=== PATIENT | female | born 1940 | race Caucasian/White ===

== ENCOUNTER 2024-08-16 18:13 | Inpatient (IN) | payer MEDICARE ==
[~2024-08-16] VITALS: Ht 167.6 cm; Wt 72.6 kg
[2024-08-16] MEDS ORDERED: AMLO-212 PO (18:56)
[2024-08-16] MEDS ORDERED: CHOL-35 PO (18:56)
[2024-08-16] MEDS ORDERED: DIME118C3 TP (18:56)
[2024-08-16] MEDS ORDERED: PANT40TA49 PO (18:56)
[2024-08-16] MEDS ORDERED: FURO-152 PO (18:56)
[2024-08-16] MEDS ORDERED: ATOR20TA PO (18:56)
[2024-08-16] MEDS ORDERED: CYAN500T47 PO (18:56)
[2024-08-16] MEDS ORDERED: FERR325T6 PO (18:56)
[2024-08-16] MEDS ORDERED: ACET325T53 PO (18:56)
[2024-08-16 19:06] VITALS: BP 135/47; TEMP 98.3; O2SAT 98
[2024-08-16] MEDS ORDERED: REMEDY ESSENTIAL ZINC PASTE 113 GM TOP PRN (20:30)
[2024-08-16] MEDS: OXYCODONE HCL 5 MG TABLET PO PRN (20:44)
[2024-08-17 05:00] VITALS: BP 151/62; TEMP 98.3; O2SAT 96
[2024-08-17] MEDS ORDERED: CHOLECALCIFEROL 1,000 UNIT TABLET PO SCH (05:45)
[2024-08-17] MEDS: PANTOPRAZOLE SODIUM 40 MG TABLET.DR PO SCH (06:41)
[2024-08-17 07:29] LABS: BASOPHILS % (AUTO) 0.6 % (0.0-2.0); EOSINOPHILS # (AUTO) 0.3 K/uL (0.0-0.7); EOSINOPHILS % (AUTO) 4.7 % (0.0-7.0); HEMATOCRIT 26.8 % (31.2-41.9); HEMOGLOBIN 9.3 g/dL (10.9-14.3); LYMPHOCYTES # (AUTO) 0.4 K/uL (0.8-4.8); LYMPHOCYTES % (AUTO) 6.6 % (20.5-51.5); MEAN CORPUSCULAR HEMOGLOBIN 33.5 uug (24.7-32.8); MEAN CORPUSCULAR HGB CONC 35 g/dL (32.3-35.6); MEAN CORPUSCULAR VOLUME 96.6 fL (75.5-95.3); MONOCYTES # (AUTO) 0.7 K/uL (0.1-1.30); MONOCYTES % (AUTO) 10.4 % (0.0-11.0); NEUTROPHILS % (AUTO) 77.7 % (38.5-71.5); PLATELET COUNT (AUTO) 163 K/uL (179-408); RED BLOOD CELL COUNT(AUTO) 2.77 MIL/uL (3.63-4.92); RED CELL DISTRIBUTION WIDTH 20.4 % (12.3-17.7); WHITE BLOOD COUNT (AUTO) 6.4 K/uL (3.8-11.8)
[2024-08-17 07:38] LABS: CALCIUM 8.5 mg/dL (8.5-10.1); CARBON DIOXIDE 31 mmol/L (21-32); CHLORIDE 102 mmol/L (98-107); CREATININE 1.2 mg/dL (0.6-1.3); GLUCOSE 104 mg/dL (74-106); POTASSIUM 3.6 mmol/L (3.5-5.1); SODIUM SERUM 140 mmol/L (136-145); UREA NITROGEN, BLOOD 11 mg/dL (7-18)
[2024-08-17 07:46] LABS: DIFFERENTIAL COMMENT 1
[2024-08-17] MEDS ORDERED: CAPE500T15 PO (08:47)
[2024-08-17] MEDS: AMLODIPINE 5 MG TABLET PO SCH (10:00)
[2024-08-17] MEDS: FERROUS SULFATE 325 MG TABEC PO SCH (10:01)
[2024-08-17] MEDS: FUROSEMIDE 20 MG TABLET PO SCH (10:01)
[2024-08-17] MEDS: CYANOCOBALAMIN 1,000 MCG TABLET PO SCH (10:01)
[2024-08-17] MEDS: MEDIHONEY= THERAHONEY 1.5 OZ TUBE TOP SCH (13:38)
[2024-08-17] MEDS: KETOROLAC TROMETHAMINE 30 MG INJ IM ONE (14:06)
[2024-08-17 16:00] VITALS: BP 116/42; TEMP 98.5; O2SAT 97
[2024-08-17] MEDS: ATORVASTATIN 20 MG TABLET PO SCH (21:00)
[2024-08-17 21:15] VITALS: BP_SYST 108; BP_SYST 78; BP_DIAS 36; BP_DIAS 45; TEMP 98; O2SAT 100
[2024-08-18 06:41] VITALS: BP 124/47; TEMP 97.9; O2SAT 96
[2024-08-18] MEDS: KETOROLAC TROMETHAMINE 30 MG INJ IM ONE (16:19)
[2024-08-18 19:58] VITALS: BP 115/46; TEMP 98.4; O2SAT 96
[2024-08-18] MEDS: MORPHINE SULFATE SR 15 MG TABLET.SA PO SCH (21:12)
[2024-08-19 06:18] VITALS: BP 134/58; TEMP 98.3; O2SAT 94
[2024-08-19 09:09] LABS: BASOPHILS % (AUTO) 0.7 % (0.0-2.0); EOSINOPHILS # (AUTO) 0.5 K/uL (0.0-0.7); EOSINOPHILS % (AUTO) 9.1 % (0.0-7.0); HEMATOCRIT 24.9 % (31.2-41.9); HEMOGLOBIN 8.6 g/dL (10.9-14.3); LYMPHOCYTES # (AUTO) 0.4 K/uL (0.8-4.8); LYMPHOCYTES % (AUTO) 7.7 % (20.5-51.5); MEAN CORPUSCULAR HEMOGLOBIN 33.3 uug (24.7-32.8); MEAN CORPUSCULAR HGB CONC 35 g/dL (32.3-35.6); MEAN CORPUSCULAR VOLUME 96.2 fL (75.5-95.3); MONOCYTES # (AUTO) 0.6 K/uL (0.1-1.30); MONOCYTES % (AUTO) 11.2 % (0.0-11.0); NEUTROPHILS # (AUTO) 3.8 K/uL (1.8-8.9); NEUTROPHILS % (AUTO) 71.3 % (38.5-71.5); PLATELET COUNT (AUTO) 195 K/uL (179-408); RED BLOOD CELL COUNT(AUTO) 2.59 MIL/uL (3.63-4.92); RED CELL DISTRIBUTION WIDTH 20.8 % (12.3-17.7); WHITE BLOOD COUNT (AUTO) 5.4 K/uL (3.8-11.8)
[2024-08-19 09:14] LABS: DIFFERENTIAL COMMENT 1
[2024-08-19 09:16] LABS: THYROID STIMULATING HORMONE 3.278 mIU/mL (0.358-3.740)
[2024-08-19 10:00] VITALS: BP 152/53; O2SAT 97
[2024-08-19] MEDS: MUPIROCIN 2% OINT 22 GM TUBE NS SCH (14:40)
[2024-08-19 15:53] VITALS: BP 126/53; TEMP 98.4; O2SAT 98
[2024-08-19] MEDS: LIDOCAINE 5% PATCH TD SCH (17:32)
[2024-08-19] MEDS: PROTEIN SUPPLEMENT (PROSTAT) 30 ML LIQUID PO SCH (17:32)
[2024-08-20 00:21] VITALS: BP 112/51; TEMP 97.8; O2SAT 94
[2024-08-20 04:06] LABS: FOLATE (FOLIC ACID), SERUM 8.3 ng/mL (>3.0)
[2024-08-20 06:45] VITALS: BP 130/48; TEMP 98.3; O2SAT 96
[2024-08-20 07:10] LABS: *IMMUNOGLOBULIN G, SERUM 577 mg/dL (586-1602); CARCINOEMBRYONIC AG (CEA) 5.3 ng/mL (0.0-4.7); IMMUNOGLOBULIN A, SERUM 106 mg/dL (64-422); IMMUNOGLOBULIN M, SERUM 76 mg/dL (26-217)
[2024-08-20 07:49] VITALS: BP 136/50; TEMP 98.4; O2SAT 94
[2024-08-20] MEDS ORDERED: CHOLECALCIFEROL 1,000 UNIT TABLET PO SCH (09:00)
[2024-08-20 10:10] LABS: FREE KAPPA LT CHAINS SERUM 37.8 mg/L (3.3-19.4); FREE LAMBDA LT CHAIN SERUM 41.7 mg/L (5.7-26.3); KAPPA/LAMBDA RATIO SERUM 0.91 (0.26-1.65)
[2024-08-20 16:10] VITALS: BP 132/57; TEMP 98.7; O2SAT 95
[2024-08-20 20:00] VITALS: BP 98/39; TEMP 97.4; O2SAT 94
[2024-08-20] MEDS: POLYVINYL ALCOHOL OPHT DROPS 15 ML BOTTLE EACHEYE PRN (21:35)
[2024-08-21 00:11] LABS: *OCCULT BLOOD STOOL NEGATIVE (NEGATIVE)
[2024-08-21 06:04] VITALS: BP 144/60; TEMP 98.6; O2SAT 93
[2024-08-21 08:13] VITALS: BP 140/50; TEMP 98; O2SAT 95
[2024-08-21 11:47] LABS: BASOPHILS % (AUTO) 0.7 % (0.0-2.0); EOSINOPHILS # (AUTO) 0.7 K/uL (0.0-0.7); HEMATOCRIT 24.4 % (31.2-41.9); HEMOGLOBIN 8.3 g/dL (10.9-14.3); LYMPHOCYTES # (AUTO) 0.4 K/uL (0.8-4.8); LYMPHOCYTES % (AUTO) 6.9 % (20.5-51.5); MEAN CORPUSCULAR HEMOGLOBIN 32.7 uug (24.7-32.8); MEAN CORPUSCULAR HGB CONC 34 g/dL (32.3-35.6); MEAN CORPUSCULAR VOLUME 96.4 fL (75.5-95.3); MONOCYTES # (AUTO) 0.6 K/uL (0.1-1.30); MONOCYTES % (AUTO) 11.1 % (0.0-11.0); NEUTROPHILS # (AUTO) 3.9 K/uL (1.8-8.9); NEUTROPHILS % (AUTO) 69.3 % (38.5-71.5); PLATELET COUNT (AUTO) 253 K/uL (179-408); RED BLOOD CELL COUNT(AUTO) 2.53 MIL/uL (3.63-4.92); RED CELL DISTRIBUTION WIDTH 20.5 % (12.3-17.7); WHITE BLOOD COUNT (AUTO) 5.6 K/uL (3.8-11.8)
[2024-08-21 12:05] LABS: DIFFERENTIAL COMMENT 1
[2024-08-21 16:05] VITALS: BP 109/45; TEMP 98; O2SAT 96
[2024-08-21] MEDS: METHYL SALICYLATE/MENTHOL CREAM 28 GM TUBE TOP PRN (16:28)
[2024-08-21 20:13] VITALS: BP 117/45; TEMP 97.9; O2SAT 95
[2024-08-22 05:59] VITALS: BP 121/43; TEMP 97.8; O2SAT 94
[2024-08-22 08:14] VITALS: BP 122/47; TEMP 98.4; O2SAT 95
[2024-08-22] MEDS: ENSURE WITH FIBER 237 ML LIQUID (CHOCOLATE) PO SCH (09:57)
[2024-08-22 16:06] VITALS: BP 124/51; TEMP 98.4; O2SAT 96
[2024-08-22 20:24] VITALS: BP 122/45; TEMP 96.7; O2SAT 99
[2024-08-23 06:45] VITALS: BP 125/53; TEMP 98.6; O2SAT 94
[2024-08-23 07:09] LABS: A/G RATIO 0.7 (0.7-1.7); ALBUMIN 1.7 g/dL (2.9-4.4); ALPHA-1-GLOBULIN 0.4 g/dL (0.0-0.4); ALPHA-2-GLOBULIN 0.9 g/dL (0.4-1.0); BETA GLOBULIN 0.8 g/dL (0.7-1.3); GAMMA GLOBULIN 0.5 g/dL (0.4-1.8); GLOBULIN, TOTAL 2.6 g/dL (2.2-3.9); M-SPIKE Not Observed g/dL (Not Observed); PROTEIN, TOTAL 4.3 g/dL (6.0-8.5)
[2024-08-23 08:00] VITALS: BP 127/52; TEMP 97; O2SAT 97
[2024-08-23 08:57] LABS: BASOPHILS % (AUTO) 0.7 % (0.0-2.0); EOSINOPHILS # (AUTO) 0.7 K/uL (0.0-0.7); EOSINOPHILS % (AUTO) 12.3 % (0.0-7.0); HEMATOCRIT 27.5 % (31.2-41.9); HEMOGLOBIN 9.3 g/dL (10.9-14.3); LYMPHOCYTES # (AUTO) 0.3 K/uL (0.8-4.8); MEAN CORPUSCULAR HEMOGLOBIN 32.6 uug (24.7-32.8); MEAN CORPUSCULAR HGB CONC 34 g/dL (32.3-35.6); MEAN CORPUSCULAR VOLUME 96.4 fL (75.5-95.3); MONOCYTES # (AUTO) 0.6 K/uL (0.1-1.30); MONOCYTES % (AUTO) 10.3 % (0.0-11.0); NEUTROPHILS # (AUTO) 3.9 K/uL (1.8-8.9); NEUTROPHILS % (AUTO) 70.7 % (38.5-71.5); PLATELET COUNT (AUTO) 247 K/uL (179-408); RED BLOOD CELL COUNT(AUTO) 2.86 MIL/uL (3.63-4.92); RED CELL DISTRIBUTION WIDTH 20.5 % (12.3-17.7); WHITE BLOOD COUNT (AUTO) 5.5 K/uL (3.8-11.8)
[2024-08-23 09:06] LABS: DIFFERENTIAL COMMENT 1
[2024-08-23 09:23] LABS: CALCIUM 8.7 mg/dL (8.5-10.1); CARBON DIOXIDE 30 mmol/L (21-32); CHLORIDE 102 mmol/L (98-107); CREATININE 1.3 mg/dL (0.6-1.3); GLUCOSE 110 mg/dL (74-106); POTASSIUM 3.8 mmol/L (3.5-5.1); SODIUM SERUM 140 mmol/L (136-145); UREA NITROGEN, BLOOD 15 mg/dL (7-18)
[2024-08-23] MEDS ORDERED: LIDOCAINE HCL 1% 20 ML VIAL IJ PRN (13:00)
[2024-08-23] MEDS: TRIAMCINOLONE ACETONIDE 40 MG/1 ML VIAL IM ONE (13:21)
[2024-08-23 16:00] VITALS: BP 135/50; TEMP 98.3; O2SAT 96
[2024-08-23 20:30] VITALS: BP 149/60; TEMP 97.3; O2SAT 93
[2024-08-24 06:46] VITALS: BP 145/59; TEMP 98.2; O2SAT 93
[2024-08-24 07:51] LABS: BASOPHILS % (AUTO) 0.3 % (0.0-2.0); HEMATOCRIT 24.8 % (31.2-41.9); HEMOGLOBIN 8.5 g/dL (10.9-14.3); LYMPHOCYTES # (AUTO) 0.2 K/uL (0.8-4.8); LYMPHOCYTES % (AUTO) 4.1 % (20.5-51.5); MEAN CORPUSCULAR HEMOGLOBIN 32.7 uug (24.7-32.8); MEAN CORPUSCULAR HGB CONC 34 g/dL (32.3-35.6); MEAN CORPUSCULAR VOLUME 95.5 fL (75.5-95.3); MONOCYTES # (AUTO) 0.2 K/uL (0.1-1.30); MONOCYTES % (AUTO) 5.1 % (0.0-11.0); NEUTROPHILS # (AUTO) 4.3 K/uL (1.8-8.9); NEUTROPHILS % (AUTO) 90.5 % (38.5-71.5); PLATELET COUNT (AUTO) 228 K/uL (179-408); RED CELL DISTRIBUTION WIDTH 20.4 % (12.3-17.7); WHITE BLOOD COUNT (AUTO) 4.8 K/uL (3.8-11.8)
[2024-08-24 08:00] VITALS: BP 144/58; TEMP 97.8; O2SAT 98
[2024-08-24 08:20] LABS: DIFFERENTIAL COMMENT 1
[2024-08-24 08:42] LABS: CALCIUM 8.9 mg/dL (8.5-10.1); CARBON DIOXIDE 29 mmol/L (21-32); CHLORIDE 101 mmol/L (98-107); CREATININE 1.3 mg/dL (0.6-1.3); GLUCOSE 169 mg/dL (74-106); POTASSIUM 4.6 mmol/L (3.5-5.1); SODIUM SERUM 136 mmol/L (136-145); UREA NITROGEN, BLOOD 23 mg/dL (7-18)
[2024-08-24 09:22] VITALS: TEMP 97.8
[2024-08-24 15:29] VITALS: BP 116/46; TEMP 97.8; O2SAT 98
[2024-08-24 20:00] VITALS: TEMP 98.6
[2024-08-25 06:35] VITALS: TEMP 97.8
[2024-08-25 08:10] VITALS: BP 136/57; TEMP 97.6; O2SAT 96
[2024-08-25 08:37] LABS: BASOPHILS % (AUTO) 0.1 % (0.0-2.0); HEMATOCRIT 24.6 % (31.2-41.9); HEMOGLOBIN 8.3 g/dL (10.9-14.3); LYMPHOCYTES # (AUTO) 0.2 K/uL (0.8-4.8); LYMPHOCYTES % (AUTO) 3.9 % (20.5-51.5); MEAN CORPUSCULAR HEMOGLOBIN 32.1 uug (24.7-32.8); MEAN CORPUSCULAR HGB CONC 34 g/dL (32.3-35.6); MEAN CORPUSCULAR VOLUME 94.7 fL (75.5-95.3); MONOCYTES # (AUTO) 0.5 K/uL (0.1-1.30); MONOCYTES % (AUTO) 7.6 % (0.0-11.0); NEUTROPHILS # (AUTO) 5.2 K/uL (1.8-8.9); NEUTROPHILS % (AUTO) 88.4 % (38.5-71.5); PLATELET COUNT (AUTO) 236 K/uL (179-408); WHITE BLOOD COUNT (AUTO) 5.9 K/uL (3.8-11.8)
[2024-08-25 08:54] LABS: DIFFERENTIAL COMMENT 1
[2024-08-25 09:26] LABS: CALCIUM 8.8 mg/dL (8.5-10.1); CARBON DIOXIDE 28 mmol/L (21-32); CHLORIDE 100 mmol/L (98-107); CREATININE 1.3 mg/dL (0.6-1.3); GLUCOSE 148 mg/dL (74-106); POTASSIUM 4.4 mmol/L (3.5-5.1); SODIUM SERUM 134 mmol/L (136-145); UREA NITROGEN, BLOOD 30 mg/dL (7-18)
[2024-08-25 16:20] VITALS: BP 123/68; TEMP 97.7; O2SAT 96
[2024-08-25 21:29] VITALS: BP 131/50; TEMP 97.8; O2SAT 97
[2024-08-26 06:48] VITALS: BP 136/60; TEMP 98.2; O2SAT 95
[2024-08-26 07:00] VITALS: TEMP 97.8
[2024-08-26 08:38] VITALS: BP 140/52; TEMP 97.8; O2SAT 95
[2024-08-26 10:24] LABS: CALCIUM 8.7 mg/dL (8.5-10.1); CARBON DIOXIDE 30 mmol/L (21-32); CHLORIDE 104 mmol/L (98-107); CREATININE 1.4 mg/dL (0.6-1.3); GLUCOSE 123 mg/dL (74-106); POTASSIUM 4.7 mmol/L (3.5-5.1); SODIUM SERUM 140 mmol/L (136-145); UREA NITROGEN, BLOOD 38 mg/dL (7-18)
[2024-08-26 16:11] VITALS: BP 125/47; TEMP 97.8; O2SAT 97
[2024-08-26 22:00] VITALS: BP 104/44; TEMP 97.8; O2SAT 95
[2024-08-27 06:37] VITALS: BP 100/55; TEMP 97.6; O2SAT 95
[2024-08-27 16:27] LABS: BASOPHILS % (AUTO) 0.1 % (0.0-2.0); EOSINOPHILS # (AUTO) 0.1 K/uL (0.0-0.7); EOSINOPHILS % (AUTO) 1.2 % (0.0-7.0); HEMATOCRIT 25.4 % (31.2-41.9); HEMOGLOBIN 8.5 g/dL (10.9-14.3); LYMPHOCYTES # (AUTO) 0.3 K/uL (0.8-4.8); LYMPHOCYTES % (AUTO) 5.1 % (20.5-51.5); MEAN CORPUSCULAR HEMOGLOBIN 31.8 uug (24.7-32.8); MEAN CORPUSCULAR HGB CONC 34 g/dL (32.3-35.6); MEAN CORPUSCULAR VOLUME 94.9 fL (75.5-95.3); MONOCYTES # (AUTO) 0.8 K/uL (0.1-1.30); NEUTROPHILS # (AUTO) 5.5 K/uL (1.8-8.9); NEUTROPHILS % (AUTO) 81.6 % (38.5-71.5); PLATELET COUNT (AUTO) 200 K/uL (179-408); RED BLOOD CELL COUNT(AUTO) 2.68 MIL/uL (3.63-4.92); RED CELL DISTRIBUTION WIDTH 20.4 % (12.3-17.7); WHITE BLOOD COUNT (AUTO) 6.7 K/uL (3.8-11.8)
[2024-08-27 16:34] LABS: DIFFERENTIAL COMMENT 1
[2024-08-27 20:49] VITALS: BP 137/56; TEMP 97.9; O2SAT 96
[2024-08-28 05:00] VITALS: BP 159/50; TEMP 98; O2SAT 96
[2024-08-28 07:29] LABS: BASOPHILS % (AUTO) 0.2 % (0.0-2.0); EOSINOPHILS # (AUTO) 0.1 K/uL (0.0-0.7); HEMATOCRIT 22.2 % (31.2-41.9); HEMOGLOBIN 7.8 g/dL (10.9-14.3); LYMPHOCYTES # (AUTO) 0.3 K/uL (0.8-4.8); LYMPHOCYTES % (AUTO) 4.9 % (20.5-51.5); MEAN CORPUSCULAR HEMOGLOBIN 33.2 uug (24.7-32.8); MEAN CORPUSCULAR HGB CONC 35 g/dL (32.3-35.6); MEAN CORPUSCULAR VOLUME 94.6 fL (75.5-95.3); MONOCYTES # (AUTO) 0.6 K/uL (0.1-1.30); NEUTROPHILS # (AUTO) 4.4 K/uL (1.8-8.9); NEUTROPHILS % (AUTO) 81.9 % (38.5-71.5); PLATELET COUNT (AUTO) 149 K/uL (179-408); RED CELL DISTRIBUTION WIDTH 20.1 % (12.3-17.7); WHITE BLOOD COUNT (AUTO) 5.4 K/uL (3.8-11.8)
[2024-08-28 08:00] VITALS: BP 141/53; TEMP 98.4; O2SAT 95
[2024-08-28 08:05] LABS: DIFFERENTIAL COMMENT 1; RED BLOOD CELL COUNT(AUTO) 2.35 MIL/uL (3.63-4.92)
[2024-08-28 16:24] VITALS: BP 128/44; TEMP 101.8; O2SAT 94
[2024-08-28] MEDS ORDERED: ACETAMINOPHEN 500 MG TABLET PO PRN (20:00)
[2024-08-28 20:36] VITALS: BP 104/38; TEMP 98.8; O2SAT 96
[2024-08-29 06:44] VITALS: BP 119/71; TEMP 97.6; O2SAT 96
[2024-08-29 08:02] LABS: BASOPHILS % (AUTO) 0.2 % (0.0-2.0); EOSINOPHILS # (AUTO) 0.1 K/uL (0.0-0.7); EOSINOPHILS % (AUTO) 0.7 % (0.0-7.0); HEMATOCRIT 23.5 % (31.2-41.9); LYMPHOCYTES # (AUTO) 0.6 K/uL (0.8-4.8); LYMPHOCYTES % (AUTO) 4.4 % (20.5-51.5); MEAN CORPUSCULAR HEMOGLOBIN 32.7 uug (24.7-32.8); MEAN CORPUSCULAR HGB CONC 34 g/dL (32.3-35.6); MEAN CORPUSCULAR VOLUME 95.7 fL (75.5-95.3); MONOCYTES % (AUTO) 8.2 % (0.0-11.0); NEUTROPHILS # (AUTO) 10.9 K/uL (1.8-8.9); NEUTROPHILS % (AUTO) 86.5 % (38.5-71.5); PLATELET COUNT (AUTO) 144 K/uL (179-408); RED CELL DISTRIBUTION WIDTH 20.4 % (12.3-17.7); WHITE BLOOD COUNT (AUTO) 12.6 K/uL (3.8-11.8)
[2024-08-29 08:12] VITALS: BP 112/74; TEMP 97.6; O2SAT 95
[2024-08-29 08:17] LABS: DIFFERENTIAL COMMENT 1; RED BLOOD CELL COUNT(AUTO) 2.45 MIL/uL (3.63-4.92)
[2024-08-29 08:23] LABS: ALANINE AMINOTRANSFERASE 23 U/L (14-59); ALBUMIN 1.6 g/dL (3.4-5.0); ALKALINE PHOSPHATASE 128 U/L (50-136); ASPARTATE AMINOTRANSFERASE 25 U/L (15-37); BILIRUBIN,TOTAL 0.4 mg/dL (0.2-1.0); CALCIUM 7.9 mg/dL (8.5-10.1); CARBON DIOXIDE 30 mmol/L (21-32); CHLORIDE 104 mmol/L (98-107); CREATININE 1.4 mg/dL (0.6-1.3); GLUCOSE 118 mg/dL (74-106); LIPASE 11 U/L (16-77); MAGNESIUM 1.8 mg/dL (1.8-2.4); PHOSPHOROUS 2.7 mg/dL (2.5-4.9); POTASSIUM 4.4 mmol/L (3.5-5.1); SODIUM SERUM 140 mmol/L (136-145); TOTAL PROTEIN, SERUM 4.8 g/dL (6.4-8.2); UREA NITROGEN, BLOOD 37 mg/dL (7-18)
[2024-08-29 11:15] LABS: *BILIRUBIN,URIN NEGATIVE (NEGATIVE); *BLOOD, URINE 1+ (NEGATIVE); *CLARITY,URINE CLEAR (CLEAR); *COLOR,URINE YELLOW (YELLOW); *KETONES,URINE NEGATIVE (NEGATIVE); *PROTEIN,URINE 1+ (NEGATIVE); *UROBILINOGEN,URINE 0.2 E.U./dl (NORMAL); LEUKOCYTE ESTERASE ,URINE 3+ (NEGATIVE); NITRITE, URINE NEGATIVE (NEGATIVE); UGLUCOSE NEGATIVE (NEGATIVE)
[2024-08-29 12:00] LABS: BACTERIA,URINE MANY /HPF (NONE SEEN); SQUAMOUS EPITHELIAL CELL,UR FEW /HPF (NONE SEEN); WBC,URINE 50-80 /HPF (0-3)
[2024-08-29] MEDS: ASCORBIC ACID 500 MG TABLET PO SCH (14:42)
[2024-08-29] MEDS: ZINC SULFATE 220 MG CAPSULE PO SCH (14:42)
[2024-08-29] MEDS: DOXYCYCLINE HYCLATE 100 MG TABLET PO SCH (14:42)
[2024-08-29 16:12] VITALS: BP 116/83; TEMP 97.9; O2SAT 97
[2024-08-29 20:00] VITALS: BP 117/65; TEMP 98.3; O2SAT 98
[2024-08-30 06:49] VITALS: BP 135/51; TEMP 97.4; O2SAT 96
[2024-08-30 09:53] VITALS: BP 127/49; TEMP 97.4; O2SAT 96
[2024-08-30 20:54] VITALS: BP 121/49; TEMP 98.1; O2SAT 98
[2024-08-31 06:48] VITALS: BP 122/43; TEMP 98.2
[2024-08-31 07:34] LABS: BASOPHILS % (AUTO) 0.4 % (0.0-2.0); EOSINOPHILS # (AUTO) 0.1 K/uL (0.0-0.7); EOSINOPHILS % (AUTO) 1.6 % (0.0-7.0); HEMATOCRIT 22.3 % (31.2-41.9); HEMOGLOBIN 7.8 g/dL (10.9-14.3); LYMPHOCYTES # (AUTO) 0.4 K/uL (0.8-4.8); MEAN CORPUSCULAR HEMOGLOBIN 33.1 uug (24.7-32.8); MEAN CORPUSCULAR HGB CONC 35 g/dL (32.3-35.6); MEAN CORPUSCULAR VOLUME 94.5 fL (75.5-95.3); MONOCYTES # (AUTO) 0.6 K/uL (0.1-1.30); MONOCYTES % (AUTO) 8.9 % (0.0-11.0); NEUTROPHILS % (AUTO) 84.1 % (38.5-71.5); PLATELET COUNT (AUTO) 132 K/uL (179-408); RED CELL DISTRIBUTION WIDTH 20.2 % (12.3-17.7); WHITE BLOOD COUNT (AUTO) 7.1 K/uL (3.8-11.8)
[2024-08-31 07:58] LABS: CALCIUM 8.2 mg/dL (8.5-10.1); CARBON DIOXIDE 30 mmol/L (21-32); CHLORIDE 105 mmol/L (98-107); CREATININE 1.4 mg/dL (0.6-1.3); GLUCOSE 116 mg/dL (74-106); MAGNESIUM 1.8 mg/dL (1.8-2.4); POTASSIUM 4.6 mmol/L (3.5-5.1); SODIUM SERUM 139 mmol/L (136-145); UREA NITROGEN, BLOOD 34 mg/dL (7-18)
[2024-08-31 08:02] LABS: DIFFERENTIAL COMMENT 1; RED BLOOD CELL COUNT(AUTO) 2.37 MIL/uL (3.63-4.92)
[2024-09-01 07:22] VITALS: BP 144/53; TEMP 97.9; O2SAT 98
[2024-09-01 07:59] VITALS: BP 121/60; TEMP 97.6; O2SAT 97
[2024-09-01 16:00] VITALS: BP 122/54; TEMP 98.2; O2SAT 97
[2024-09-01] MEDS: DOCUSATE SODIUM 100 MG CAPSULE PO SCH (17:06)
[2024-09-01 22:32] VITALS: BP 144/51; TEMP 98; O2SAT 96
[2024-09-02 05:00] VITALS: BP 148/59; TEMP 98.2; O2SAT 97
[2024-09-02] MEDS: NITROFURANTOIN/NITROFURAN MAC 100 MG CAPSULE PO SCH (21:39)
[2024-09-02 21:56] VITALS: BP 127/51; TEMP 97.8; O2SAT 95
[2024-09-03 07:43] VITALS: BP 140/42; TEMP 98; O2SAT 95
[2024-09-03 07:56] LABS: BASOPHILS % (AUTO) 0.3 % (0.0-2.0); EOSINOPHILS # (AUTO) 0.2 K/uL (0.0-0.7); EOSINOPHILS % (AUTO) 2.4 % (0.0-7.0); HEMATOCRIT 24.6 % (31.2-41.9); HEMOGLOBIN 8.2 g/dL (10.9-14.3); LYMPHOCYTES # (AUTO) 0.3 K/uL (0.8-4.8); LYMPHOCYTES % (AUTO) 3.6 % (20.5-51.5); MEAN CORPUSCULAR HEMOGLOBIN 31.8 uug (24.7-32.8); MEAN CORPUSCULAR HGB CONC 33 g/dL (32.3-35.6); MEAN CORPUSCULAR VOLUME 95.8 fL (75.5-95.3); MONOCYTES # (AUTO) 0.4 K/uL (0.1-1.30); MONOCYTES % (AUTO) 4.6 % (0.0-11.0); NEUTROPHILS # (AUTO) 7.8 K/uL (1.8-8.9); NEUTROPHILS % (AUTO) 89.1 % (38.5-71.5); PLATELET COUNT (AUTO) 148 K/uL (179-408); RED BLOOD CELL COUNT(AUTO) 2.57 MIL/uL (3.63-4.92); WHITE BLOOD COUNT (AUTO) 8.7 K/uL (3.8-11.8)
[2024-09-03 08:04] LABS: DIFFERENTIAL COMMENT 1
[2024-09-03 08:10] VITALS: BP 144/58; TEMP 98; O2SAT 95
[2024-09-03] MEDS: ONDANSETRON HCL 4 MG TABLET PO PRN (12:26)
[2024-09-03 19:30] VITALS: BP 123/54; TEMP 97.9; O2SAT 96
[2024-09-04 06:00] VITALS: BP 120/60; TEMP 97.8; O2SAT 96
[2024-09-04 09:10] LABS: BASOPHILS % (AUTO) 0.2 % (0.0-2.0); EOSINOPHILS # (AUTO) 0.3 K/uL (0.0-0.7); EOSINOPHILS % (AUTO) 3.3 % (0.0-7.0); HEMOGLOBIN 8.6 g/dL (10.9-14.3); LYMPHOCYTES # (AUTO) 0.3 K/uL (0.8-4.8); LYMPHOCYTES % (AUTO) 3.9 % (20.5-51.5); MEAN CORPUSCULAR HGB CONC 33 g/dL (32.3-35.6); MEAN CORPUSCULAR VOLUME 96.7 fL (75.5-95.3); MONOCYTES # (AUTO) 0.4 K/uL (0.1-1.30); MONOCYTES % (AUTO) 5.1 % (0.0-11.0); NEUTROPHILS # (AUTO) 6.7 K/uL (1.8-8.9); NEUTROPHILS % (AUTO) 87.5 % (38.5-71.5); PLATELET COUNT (AUTO) 149 K/uL (179-408); RED BLOOD CELL COUNT(AUTO) 2.69 MIL/uL (3.63-4.92); RED CELL DISTRIBUTION WIDTH 20.9 % (12.3-17.7); WHITE BLOOD COUNT (AUTO) 7.7 K/uL (3.8-11.8)
[2024-09-04 09:20] LABS: CALCIUM 8.9 mg/dL (8.5-10.1); CARBON DIOXIDE 29 mmol/L (21-32); CHLORIDE 106 mmol/L (98-107); CREATININE 1.2 mg/dL (0.6-1.3); GLUCOSE 145 mg/dL (74-106); PHOSPHOROUS 3.3 mg/dL (2.5-4.9); POTASSIUM 4.5 mmol/L (3.5-5.1); SODIUM SERUM 141 mmol/L (136-145); UREA NITROGEN, BLOOD 25 mg/dL (7-18)
[2024-09-04 09:27] LABS: DIFFERENTIAL COMMENT 1
[2024-09-04 10:02] VITALS: BP 134/50; TEMP 97.9; O2SAT 98
[2024-09-04 16:16] VITALS: BP 121/52; TEMP 97.8; O2SAT 98
[2024-09-04 22:48] VITALS: BP 114/49; TEMP 98; O2SAT 98
[2024-09-05 07:00] VITALS: BP 156/55; TEMP 98.2; O2SAT 96
[2024-09-05 15:54] VITALS: BP 144/45; TEMP 98.2; O2SAT 97
[2024-09-05 21:11] VITALS: BP 110/55; TEMP 97.9; O2SAT 95
[2024-09-06 07:36] VITALS: BP 114/90; TEMP 97.9; O2SAT 97
[2024-09-06 19:39] VITALS: BP 118/48; TEMP 90; O2SAT 94
[2024-09-06 19:54] VITALS: BP 117/43; TEMP 98.1; O2SAT 97
[2024-09-06 20:17] VITALS: BP 126/47
[2024-09-07 05:00] VITALS: BP 131/49; TEMP 98.2; O2SAT 94
[2024-09-07 16:12] VITALS: BP 143/48; TEMP 97.3; O2SAT 100
[2024-09-08 07:55] VITALS: BP 144/51; TEMP 97.9; O2SAT 95
[2024-09-08 08:20] VITALS: BP 156/67; TEMP 98.5; O2SAT 96
[2024-09-08] MEDS ORDERED: ALBUTEROL SULFATE 2.5 MG/3 ML NEBU NEB PRN (16:45)
[2024-09-08 22:42] VITALS: BP 115/57; TEMP 98; O2SAT 93
[2024-09-09 06:53] VITALS: BP 97/39; TEMP 99; O2SAT 90
[2024-09-09 08:00] VITALS: BP 115/57; TEMP 98; O2SAT 93
[2024-09-09 08:13] LABS: BASOPHILS # (AUTO) 0.1 K/UL (0.0-0.2); BASOPHILS % (AUTO) 0.4 % (0.0-2.0); EOSINOPHILS % (AUTO) 0.2 % (0.0-7.0); HEMATOCRIT 24.8 % (31.2-41.9); HEMOGLOBIN 8.2 g/dL (10.9-14.3); LYMPHOCYTES # (AUTO) 0.4 K/uL (0.8-4.8); LYMPHOCYTES % (AUTO) 3.8 % (20.5-51.5); MEAN CORPUSCULAR HEMOGLOBIN 31.8 uug (24.7-32.8); MEAN CORPUSCULAR HGB CONC 33 g/dL (32.3-35.6); MEAN CORPUSCULAR VOLUME 95.8 fL (75.5-95.3); MONOCYTES # (AUTO) 0.9 K/uL (0.1-1.30); MONOCYTES % (AUTO) 8.1 % (0.0-11.0); NEUTROPHILS # (AUTO) 10.2 K/uL (1.8-8.9); NEUTROPHILS % (AUTO) 87.5 % (38.5-71.5); PLATELET COUNT (AUTO) 175 K/uL (179-408); RED BLOOD CELL COUNT(AUTO) 2.59 MIL/uL (3.63-4.92); WHITE BLOOD COUNT (AUTO) 11.6 K/uL (3.8-11.8)
[2024-09-09 08:27] LABS: DIFFERENTIAL COMMENT 1
[2024-09-09 08:52] LABS: ALANINE AMINOTRANSFERASE 19 U/L (14-59); ALBUMIN 1.6 g/dL (3.4-5.0); ALKALINE PHOSPHATASE 104 U/L (50-136); ASPARTATE AMINOTRANSFERASE 13 U/L (15-37); BILIRUBIN,TOTAL 0.9 mg/dL (0.2-1.0); CALCIUM 8.6 mg/dL (8.5-10.1); CARBON DIOXIDE 28 mmol/L (21-32); CHLORIDE 105 mmol/L (98-107); CREATININE 1.4 mg/dL (0.6-1.3); GLUCOSE 124 mg/dL (74-106); NT-PRO BNP 11736 pg/mL (0-125); PHOSPHOROUS 3.8 mg/dL (2.5-4.9); SODIUM SERUM 138 mmol/L (136-145); TOTAL PROTEIN, SERUM 5.3 g/dL (6.4-8.2); UREA NITROGEN, BLOOD 32 mg/dL (7-18)
[2024-09-09 09:00] VITALS: BP 112/49
[2024-09-09] MEDS ORDERED: ASCO-375 PO (14:39)
[2024-09-09] MEDS ORDERED: DOCU100C36 PO (14:40)
[2024-09-09] MEDS ORDERED: LACT-84 PO (14:43)
[2024-09-09] MEDS ORDERED: OXYC-592 PO (14:43)
[2024-09-09] MEDS ORDERED: MORP15TA60 PO (14:46)
[2024-09-09] MEDS ORDERED: LIDO30AD10 TD (14:47)
[2024-09-09] MEDS ORDERED: ACET-2605 PO (14:47)
[2024-09-09] MEDS ORDERED: ONDA-104 PO (14:48)
[2024-09-09] MEDS ORDERED: POLY15DR31 EACHEYE (14:49)
[2024-09-09] MEDS ORDERED: ZINC1CAP2 PO (14:49)
[2024-09-09] MEDS ORDERED: METH57CR22 TP (14:52)
[2024-09-09] MEDS ORDERED: ALBU2.5V38 IH (14:54)
[2024-09-09] MEDS ORDERED: IV NORMAL SALINE 250 ML IV ONE (16:49)
[2024-09-09] MEDS ORDERED: SWABABLE VALVE TRANSFER SET EA MC ONE (16:49)
[2024-09-09] MEDS ORDERED: IOHEXOL 300MG/ML 100 ML INFUS..BTL ONE (16:49)
== END 2024-09-09 11:00 | disposition short-term general hospital (02) | DRG 559 ==
PROVIDERS: ADMIT Physical Medicine & Rehabilitation Pain Medicine; ATTEND Physical Medicine & Rehabilitation Pain Medicine
DX: Z47.89 Encounter for other orthopedic aftercare (principal); N17.0 Acute kidney failure with tubular necrosis; D68.59 Other primary thrombophilia; E46 Unspecified protein-calorie malnutrition; G95.89 Other specified diseases of spinal cord; N82.3 Fistula of vagina to large intestine; S12.100D Unspecified displaced fracture of second cervical vertebra, subsequent encounter for fracture with routine healing; D64.9 Anemia, unspecified; I10 Essential (primary) hypertension; M48.02 Spinal stenosis, cervical region; Z93.3 Colostomy status; Z85.038 Personal history of other malignant neoplasm of large intestine; B96.20 Unspecified Escherichia coli [E. coli] as the cause of diseases classified elsewhere; N30.90 Cystitis, unspecified without hematuria; D50.9 Iron deficiency anemia, unspecified; W18.30XD Fall on same level, unspecified, subsequent encounter; E66.9 Obesity, unspecified; Z68.25 Body mass index [BMI] 25.0-25.9, adult; E78.5 Hyperlipidemia, unspecified; E88.09 Other disorders of plasma-protein metabolism, not elsewhere classified; F41.9 Anxiety disorder, unspecified; Z85.72 Personal history of non-Hodgkin lymphomas; Z88.2 Allergy status to sulfonamides; Z88.1 Allergy status to other antibiotic agents; Z88.0 Allergy status to penicillin; M75.82 Other shoulder lesions, left shoulder; M19.012 Primary osteoarthritis, left shoulder; Z91.018 Allergy to other foods; L89.156 Pressure-induced deep tissue damage of sacral region
CPT/HCPCS: 36415; 71045; 73221; 74018; 82378; 82746; 82784; 83550; 83605; 83615; 83690; 83735; 84100; 84155; 84165; 84443; 84484; 85025; 86334; 93005; 97535-GO-CO; A4663; A6209; J1885; J3301; J3490; Q0162; Q9967

== ENCOUNTER 2024-09-09 11:21 | Inpatient (IN) | payer MEDICARE ==
[~2024-09-09] VITALS: Ht 167.6 cm; Wt 72.6 kg
[~2024-09-09 11:21] MED LIST: ACET325T53 PO; AMLO-212 PO; ATOR20TA PO; CHOL-35 PO; CYAN500T47 PO; DIME118C3 TP; FERR325T6 PO; FURO-152 PO; PANT40TA49 PO
[2024-09-09] MEDS ORDERED: ASCO-375 PO (14:39)
[2024-09-09] MEDS ORDERED: DOCU100C36 PO (14:40)
[2024-09-09] MEDS ORDERED: OXYC-592 PO (14:43)
[2024-09-09] MEDS ORDERED: LACT-84 PO (14:43)
[2024-09-09] MEDS ORDERED: MORP15TA60 PO (14:46)
[2024-09-09] MEDS ORDERED: ACET-2605 PO (14:47)
[2024-09-09] MEDS ORDERED: LIDO30AD10 TD (14:47)
[2024-09-09] MEDS ORDERED: ONDA-104 PO (14:48)
[2024-09-09] MEDS ORDERED: POLY15DR31 EACHEYE (14:49)
[2024-09-09] MEDS ORDERED: ZINC1CAP2 PO (14:49)
[2024-09-09] MEDS ORDERED: METH57CR22 TP (14:52)
[2024-09-09] MEDS ORDERED: ALBU2.5V38 IH (14:54)
[2024-09-09 14:55] VITALS: BP 123/58; TEMP 98.3; O2SAT 95
[2024-09-09] MEDS ORDERED: OXYCODONE HCL 10 MG PO PRN (15:15)
[2024-09-09] MEDS ORDERED: ALBUTEROL SULFATE 2.5 MG/3 ML NEBU NEB PRN (15:15)
[2024-09-09] MEDS ORDERED: ACETAMINOPHEN ES 500 MG TABLET- SA PATIENTS-PAIN ONLY PO PRN (15:15)
[2024-09-09] MEDS ORDERED: OXYCODONE HCL 5 MG TABLET PO PRN (15:30)
[2024-09-09] MEDS ORDERED: ACETAMINOPHEN 500 MG TABLET PO PRN (15:30)
[2024-09-09] MEDS ORDERED: COMPLEAT MODIFIED FORMULA 1000 ML LIQUID PO SCH (17:00)
[2024-09-09] MEDS: DOCUSATE SODIUM 100 MG CAPSULE PO SCH (17:22)
[2024-09-09] MEDS: ENSURE WITH FIBER 237 ML LIQUID (CHOCOLATE) PO SCH (17:23)
[2024-09-09] MEDS: MEROPENEM 500 MG in IV NORMAL SALINE 50 ML IV SCH (18:29)
[2024-09-09 19:45] VITALS: BP 110/68; TEMP 98; O2SAT 93
[2024-09-09] MEDS ORDERED: MEROPENEM 500 MG in IV NORMAL SALINE 50 ML IV SCH (21:00)
[2024-09-09] MEDS: ATORVASTATIN 20 MG TABLET PO SCH (21:05)
[2024-09-09] MEDS: MORPHINE SULFATE SR 15 MG TABLET.SA PO SCH (21:06)
[2024-09-10 00:30] VITALS: BP 119/48; TEMP 98.9; O2SAT 93
[2024-09-10 03:04] LABS: *BILIRUBIN,URIN NEGATIVE (NEGATIVE); *BLOOD, URINE NEGATIVE (NEGATIVE); *CLARITY,URINE CLEAR (CLEAR); *COLOR,URINE YELLOW (YELLOW); *KETONES,URINE NEGATIVE (NEGATIVE); *PROTEIN,URINE NEGATIVE (NEGATIVE); *UROBILINOGEN,URINE 0.2 E.U./dl (NORMAL); LEUKOCYTE ESTERASE ,URINE TRACE (NEGATIVE); NITRITE, URINE NEGATIVE (NEGATIVE); PH,URINE 5.5 (5.0-8.0); UGLUCOSE NEGATIVE (NEGATIVE)
[2024-09-10 03:44] LABS: BACTERIA,URINE FEW /HPF (NONE SEEN); RBC,URINE NONE SEEN /HPF (0-3); SQUAMOUS EPITHELIAL CELL,UR FEW /HPF (NONE SEEN)
[2024-09-10 03:45] LABS: TRIPLE PHOSPHATE CRYSTAL,UR FEW /HPF (NONE SEEN)
[2024-09-10 04:30] VITALS: BP 89/54; TEMP 97.2; O2SAT 95
[2024-09-10] MEDS: PANTOPRAZOLE SODIUM 40 MG TABLET.DR PO SCH (06:18)
[2024-09-10 08:44] LABS: BASOPHILS % (AUTO) 0.4 % (0.0-2.0); EOSINOPHILS # (AUTO) 0.1 K/uL (0.0-0.7); EOSINOPHILS % (AUTO) 1.1 % (0.0-7.0); HEMATOCRIT 24.2 % (31.2-41.9); HEMOGLOBIN 8.1 g/dL (10.9-14.3); LYMPHOCYTES # (AUTO) 0.4 K/uL (0.8-4.8); LYMPHOCYTES % (AUTO) 4.5 % (20.5-51.5); MEAN CORPUSCULAR HEMOGLOBIN 31.9 uug (24.7-32.8); MEAN CORPUSCULAR HGB CONC 34 g/dL (32.3-35.6); MEAN CORPUSCULAR VOLUME 95.2 fL (75.5-95.3); MONOCYTES # (AUTO) 0.7 K/uL (0.1-1.30); MONOCYTES % (AUTO) 8.8 % (0.0-11.0); NEUTROPHILS # (AUTO) 6.9 K/uL (1.8-8.9); NEUTROPHILS % (AUTO) 85.2 % (38.5-71.5); PLATELET COUNT (AUTO) 161 K/uL (179-408); RED BLOOD CELL COUNT(AUTO) 2.54 MIL/uL (3.63-4.92); RED CELL DISTRIBUTION WIDTH 20.5 % (12.3-17.7); WHITE BLOOD COUNT (AUTO) 8.1 K/uL (3.8-11.8)
[2024-09-10 08:50] LABS: DIFFERENTIAL COMMENT 1
[2024-09-10 08:55] LABS: IRON, SERUM 14 ug/dL (50-175)
[2024-09-10] MEDS: AMLODIPINE 5 MG TABLET PO SCH (09:00)
[2024-09-10] MEDS ORDERED: CYANOCOBALAMIN 2500 MCG PO SCH (09:00)
[2024-09-10] MEDS: LIDOCAINE 5% PATCH TD SCH (09:00)
[2024-09-10] MEDS: FUROSEMIDE 20 MG TABLET PO SCH (09:00)
[2024-09-10] MEDS ORDERED: Medication Not On Formulary EA (Ferrous Sulfate 325 MG) PO SCH (09:00)
[2024-09-10] MEDS: ZINC SULFATE 220 MG CAPSULE PO SCH (09:04)
[2024-09-10] MEDS: FERROUS SULFATE 325 MG TABEC PO SCH (09:04)
[2024-09-10] MEDS: CYANOCOBALAMIN 1,000 MCG TABLET PO SCH (09:04)
[2024-09-10] MEDS: ASCORBIC ACID 500 MG TABLET PO SCH (09:04)
[2024-09-10 09:07] LABS: ALANINE AMINOTRANSFERASE 18 U/L (14-59); ALBUMIN 1.6 g/dL (3.4-5.0); ALKALINE PHOSPHATASE 103 U/L (50-136); ASPARTATE AMINOTRANSFERASE 16 U/L (15-37); BILIRUBIN,TOTAL 0.7 mg/dL (0.2-1.0); CALCIUM 8.6 mg/dL (8.5-10.1); CARBON DIOXIDE 28 mmol/L (21-32); CHLORIDE 102 mmol/L (98-107); CREATININE 1.4 mg/dL (0.6-1.3); GLUCOSE 98 mg/dL (74-106); MAGNESIUM 2.1 mg/dL (1.8-2.4); NT-PRO BNP 5888 pg/mL (0-125); PHOSPHOROUS 4.1 mg/dL (2.5-4.9); POTASSIUM 4.7 mmol/L (3.5-5.1); SODIUM SERUM 135 mmol/L (136-145); TOTAL PROTEIN, SERUM 5.2 g/dL (6.4-8.2); UREA NITROGEN, BLOOD 35 mg/dL (7-18)
[2024-09-10 09:44] VITALS: BP 120/46; TEMP 97.5; O2SAT 91
[2024-09-10 13:24] VITALS: BP 108/42; TEMP 98.2; O2SAT 91
[2024-09-10 17:03] VITALS: BP 131/66; TEMP 98.1; O2SAT 94
[2024-09-10 19:40] VITALS: BP 110/30; TEMP 98.8; O2SAT 94
[2024-09-11 06:41] LABS: BASOPHILS % (AUTO) 0.6 % (0.0-2.0); EOSINOPHILS # (AUTO) 0.1 K/uL (0.0-0.7); EOSINOPHILS % (AUTO) 1.7 % (0.0-7.0); HEMATOCRIT 25.3 % (31.2-41.9); HEMOGLOBIN 8.5 g/dL (10.9-14.3); LYMPHOCYTES # (AUTO) 0.4 K/uL (0.8-4.8); LYMPHOCYTES % (AUTO) 5.6 % (20.5-51.5); MEAN CORPUSCULAR HEMOGLOBIN 31.8 uug (24.7-32.8); MEAN CORPUSCULAR HGB CONC 34 g/dL (32.3-35.6); MEAN CORPUSCULAR VOLUME 95.1 fL (75.5-95.3); MONOCYTES # (AUTO) 0.6 K/uL (0.1-1.30); MONOCYTES % (AUTO) 8.5 % (0.0-11.0); NEUTROPHILS # (AUTO) 6.1 K/uL (1.8-8.9); NEUTROPHILS % (AUTO) 83.6 % (38.5-71.5); PLATELET COUNT (AUTO) 192 K/uL (179-408); RED BLOOD CELL COUNT(AUTO) 2.66 MIL/uL (3.63-4.92); RED CELL DISTRIBUTION WIDTH 20.8 % (12.3-17.7); WHITE BLOOD COUNT (AUTO) 7.3 K/uL (3.8-11.8)
[2024-09-11 07:00] VITALS: BP 117/41; TEMP 98; O2SAT 92
[2024-09-11 07:12] LABS: CALCIUM 8.4 mg/dL (8.5-10.1); CARBON DIOXIDE 26 mmol/L (21-32); CHLORIDE 102 mmol/L (98-107); CREATININE 1.4 mg/dL (0.6-1.3); DIFFERENTIAL COMMENT 1; GLUCOSE 106 mg/dL (74-106); MAGNESIUM 2.3 mg/dL (1.8-2.4); PHOSPHOROUS 4.2 mg/dL (2.5-4.9); POTASSIUM 4.5 mmol/L (3.5-5.1); SODIUM SERUM 135 mmol/L (136-145); UREA NITROGEN, BLOOD 35 mg/dL (7-18)
[2024-09-11 12:00] VITALS: BP 122/47; TEMP 98.2; O2SAT 97
[2024-09-11] MEDS: IV NORMAL SALINE 500 ML IV ONE (12:03)
[2024-09-11] MEDS: COLCHICINE 0.6 MG TABLET PO SCH (12:08)
[2024-09-11 16:00] VITALS: BP 140/80; TEMP 98
[2024-09-11 19:00] VITALS: BP 127/58; TEMP 98.3; O2SAT 94
[2024-09-12 06:00] VITALS: BP 134/57; TEMP 98.7; O2SAT 95
[2024-09-12 07:22] LABS: BASOPHILS % (AUTO) 0.6 % (0.0-2.0); EOSINOPHILS # (AUTO) 0.1 K/uL (0.0-0.7); EOSINOPHILS % (AUTO) 2.9 % (0.0-7.0); HEMOGLOBIN 9.2 g/dL (10.9-14.3); LYMPHOCYTES # (AUTO) 0.5 K/uL (0.8-4.8); LYMPHOCYTES % (AUTO) 8.7 % (20.5-51.5); MEAN CORPUSCULAR HEMOGLOBIN 31.8 uug (24.7-32.8); MEAN CORPUSCULAR HGB CONC 33 g/dL (32.3-35.6); MONOCYTES # (AUTO) 0.5 K/uL (0.1-1.30); MONOCYTES % (AUTO) 9.5 % (0.0-11.0); NEUTROPHILS # (AUTO) 4.1 K/uL (1.8-8.9); NEUTROPHILS % (AUTO) 78.3 % (38.5-71.5); PLATELET COUNT (AUTO) 240 K/uL (179-408); RED BLOOD CELL COUNT(AUTO) 2.88 MIL/uL (3.63-4.92); RED CELL DISTRIBUTION WIDTH 20.6 % (12.3-17.7); WHITE BLOOD COUNT (AUTO) 5.2 K/uL (3.8-11.8)
[2024-09-12 07:42] LABS: CALCIUM 8.9 mg/dL (8.5-10.1); CARBON DIOXIDE 28 mmol/L (21-32); CHLORIDE 101 mmol/L (98-107); CREATININE 1.3 mg/dL (0.6-1.3); GLUCOSE 101 mg/dL (74-106); MAGNESIUM 2.2 mg/dL (1.8-2.4); PHOSPHOROUS 4.1 mg/dL (2.5-4.9); POTASSIUM 4.1 mmol/L (3.5-5.1); SODIUM SERUM 138 mmol/L (136-145); UREA NITROGEN, BLOOD 32 mg/dL (7-18); URIC ACID 6.8 mg/dL (2.6-6.0)
[2024-09-12 07:48] LABS: DIFFERENTIAL COMMENT 1
[2024-09-12] MEDS: ONDANSETRON 4 MG/2 ML VIAL IV PRN (08:54)
[2024-09-12] MEDS ORDERED: IOHEXOL 350 100 ML INFUS..BTL ONE (10:39)
[2024-09-12] MEDS ORDERED: SWABABLE VALVE TRANSFER SET EA MC ONE (10:39)
[2024-09-12] MEDS ORDERED: IV NORMAL SALINE 250 ML IV ONE (10:40)
[2024-09-12 12:00] VITALS: BP 148/60; TEMP 98.3; O2SAT 95
[2024-09-12 16:00] VITALS: BP 119/54; TEMP 97.7; O2SAT 97
[2024-09-12] MEDS: MORPHINE SULFATE 2 MG/1 ML DISP.SYRIN IV ONE (17:25)
[2024-09-12] MEDS ORDERED: MORPHINE SULFATE 2 MG/1 ML DISP.SYRIN IV PRN (17:30)
[2024-09-12 20:38] VITALS: BP 96/48; TEMP 98.2; O2SAT 97
[2024-09-12] MEDS: REMEDY ESSENTIAL ZINC PASTE 113 GM TOP SCH (21:11)
[2024-09-13 05:53] VITALS: BP 140/60; TEMP 98.1; O2SAT 97
[2024-09-13 09:21] LABS: BASOPHILS % (AUTO) 0.5 % (0.0-2.0); EOSINOPHILS # (AUTO) 0.2 K/uL (0.0-0.7); EOSINOPHILS % (AUTO) 3.6 % (0.0-7.0); HEMATOCRIT 27.7 % (31.2-41.9); HEMOGLOBIN 9.1 g/dL (10.9-14.3); LYMPHOCYTES # (AUTO) 0.4 K/uL (0.8-4.8); LYMPHOCYTES % (AUTO) 7.3 % (20.5-51.5); MEAN CORPUSCULAR HEMOGLOBIN 31.6 uug (24.7-32.8); MEAN CORPUSCULAR HGB CONC 33 g/dL (32.3-35.6); MEAN CORPUSCULAR VOLUME 95.8 fL (75.5-95.3); MONOCYTES # (AUTO) 0.6 K/uL (0.1-1.30); MONOCYTES % (AUTO) 10.2 % (0.0-11.0); NEUTROPHILS # (AUTO) 4.4 K/uL (1.8-8.9); NEUTROPHILS % (AUTO) 78.4 % (38.5-71.5); PLATELET COUNT (AUTO) 264 K/uL (179-408); RED BLOOD CELL COUNT(AUTO) 2.89 MIL/uL (3.63-4.92); RED CELL DISTRIBUTION WIDTH 20.6 % (12.3-17.7); WHITE BLOOD COUNT (AUTO) 5.6 K/uL (3.8-11.8)
[2024-09-13 09:24] LABS: DIFFERENTIAL COMMENT 1
[2024-09-13 09:39] LABS: ALANINE AMINOTRANSFERASE 23 U/L (14-59); ALBUMIN 1.8 g/dL (3.4-5.0); ALKALINE PHOSPHATASE 144 U/L (50-136); ASPARTATE AMINOTRANSFERASE 23 U/L (15-37); BILIRUBIN,TOTAL 0.6 mg/dL (0.2-1.0); CALCIUM 8.9 mg/dL (8.5-10.1); CARBON DIOXIDE 28 mmol/L (21-32); CHLORIDE 103 mmol/L (98-107); CREATININE 1.5 mg/dL (0.6-1.3); GLUCOSE 108 mg/dL (74-106); POTASSIUM 4.5 mmol/L (3.5-5.1); SODIUM SERUM 139 mmol/L (136-145); TOTAL PROTEIN, SERUM 5.9 g/dL (6.4-8.2); UREA NITROGEN, BLOOD 36 mg/dL (7-18)
[2024-09-13] MEDS: IBUPROFEN 800 MG TABLET PO SCH (09:43)
[2024-09-13 11:30] VITALS: BP 109/36; TEMP 98; O2SAT 97
[2024-09-13 16:00] VITALS: BP 99/36; TEMP 98.5; O2SAT 97
[2024-09-13 19:30] VITALS: BP 151/49; TEMP 97.7; O2SAT 97
[2024-09-14 04:00] VITALS: BP 116/43; TEMP 97.1; O2SAT 95
[2024-09-14 07:31] VITALS: BP 125/41; TEMP 98.1; O2SAT 97
[2024-09-14 07:37] LABS: CALCIUM 8.4 mg/dL (8.5-10.1); CARBON DIOXIDE 29 mmol/L (21-32); CHLORIDE 106 mmol/L (98-107); CREATININE 1.3 mg/dL (0.6-1.3); GLUCOSE 101 mg/dL (74-106); POTASSIUM 4.5 mmol/L (3.5-5.1); SODIUM SERUM 140 mmol/L (136-145); UREA NITROGEN, BLOOD 37 mg/dL (7-18)
[2024-09-14] MEDS: PROTEIN SUPPLEMENT (PROSTAT) 30 ML LIQUID PO SCH (08:18)
[2024-09-14] MEDS ORDERED: NITROFURANTOIN/NITROFURAN MAC 100 MG CAPSULE PO SCH (09:45)
[2024-09-14 11:39] VITALS: BP 121/43; TEMP 98.3; O2SAT 96
[2024-09-14 16:00] VITALS: BP 132/39; TEMP 98; O2SAT 97
[2024-09-14 19:00] VITALS: BP 124/47; TEMP 98; O2SAT 98
[2024-09-14] MEDS ORDERED: FOSFOMYCIN TROMETHAMINE 3 GM PACKET ONE (21:56)
[2024-09-14] MEDS: FOSFOMYCIN TROMETHAMINE 3 GM PACKET PO ONE (22:04)
[2024-09-15 04:00] VITALS: BP 149/53; TEMP 98.1; O2SAT 97
[2024-09-15 07:32] VITALS: BP 127/46; TEMP 98.1; O2SAT 96
[2024-09-15] MEDS: ONDANSETRON 4 MG/2 ML VIAL IV PRN (08:37)
[2024-09-15 11:33] VITALS: BP 129/51; TEMP 98; O2SAT 97
[2024-09-15] MEDS ORDERED: COLC0.6C3 PO (12:50)
[2024-09-15] MEDS ORDERED: IBUP-1957 PO (12:50)
[2024-09-15 15:50] VITALS: BP 136/53; TEMP 98; O2SAT 96
[2024-09-15] MEDS: AMIODARONE HCL IV 150 MG in IV DEXTROSE 5% 100 ML IV ONE (18:43)
[2024-09-15] MEDS: AMIODARONE HCL IV 450 MG in IV DEXTROSE 5% 250 ML IV PRN (18:53)
[2024-09-16 08:00] VITALS: BP 133/46; TEMP 97.7; O2SAT 97
[2024-09-16] MEDS ORDERED: METO-356 PO (09:40)
[2024-09-16 11:53] VITALS: BP 152/61; TEMP 98.2; O2SAT 96
== END 2024-09-16 15:00 | disposition home health service (06) | DRG 314 ==
LOC: UNDOADMIN 11:21 → TELE3 11:21 → TELE1 11:21 → MEDSURG3 09-10 10:36 → TELE3 09-12 17:47 → TELE-TD3 09-15 18:22
PROVIDERS: ADMIT Internal Medicine; ATTEND Internal Medicine
PROC: 05HC33Z Insertion of Infusion Device into Left Basilic Vein, Percutaneous Approach (ICD-10-PCS; principal; 2024-09-11)
DX: I31.9 Disease of pericardium, unspecified (principal); E43 Unspecified severe protein-calorie malnutrition; N17.0 Acute kidney failure with tubular necrosis; I50.33 Acute on chronic diastolic (congestive) heart failure; C18.9 Malignant neoplasm of colon, unspecified; G95.89 Other specified diseases of spinal cord; D68.59 Other primary thrombophilia; I13.0 Hypertensive heart and chronic kidney disease with heart failure and stage 1 through stage 4 chronic kidney disease, or unspecified chronic kidney disease; N82.3 Fistula of vagina to large intestine; I31.39 Other pericardial effusion (noninflammatory); R07.9 Chest pain, unspecified; E88.09 Other disorders of plasma-protein metabolism, not elsewhere classified; S14.10 Unspecified injury of cervical spinal cord; S12.190D Other displaced fracture of second cervical vertebra, subsequent encounter for fracture with routine healing; W19.XXXD Unspecified fall, subsequent encounter; D50.9 Iron deficiency anemia, unspecified; Z92.21 Personal history of antineoplastic chemotherapy; I48.0 Paroxysmal atrial fibrillation; F32.A Depression, unspecified; F41.9 Anxiety disorder, unspecified; M15.9 Polyosteoarthritis, unspecified; N30.90 Cystitis, unspecified without hematuria; N18.9 Chronic kidney disease, unspecified; Z74.09 Other reduced mobility; D69.6 Thrombocytopenia, unspecified; I35.8 Other nonrheumatic aortic valve disorders; I77.810 Thoracic aortic ectasia; E78.5 Hyperlipidemia, unspecified; Z68.25 Body mass index [BMI] 25.0-25.9, adult; Z93.3 Colostomy status; Z90.49 Acquired absence of other specified parts of digestive tract; Z85.038 Personal history of other malignant neoplasm of large intestine; Z86.16 Personal history of COVID-19; Z87.440 Personal history of urinary (tract) infections; Z85.72 Personal history of non-Hodgkin lymphomas; Z88.2 Allergy status to sulfonamides; Z88.0 Allergy status to penicillin
CPT/HCPCS: 36415; 51798; 71260; 71275; 83550; 83735; 84100; 84443; 84481; 84484; 84550; 85025; 93005; 93307; A4663; A6213; G0378; J0282; J2185; J2270; J2405; J7040; J7050; Q9967